=== PATIENT | female | born 1975 | race Caucasian/White ===

== ENCOUNTER 2016-05-21 21:23 | Emergency (ER) | payer OTHER ==
[~2016-05-21 21:23] MED LIST: ACET500CAP PO; ALEVE220 MG PO; AMOXIL500 MG PO; ASAB PO; BENTYL20 PO; CEFT2 PO; IRON OTC PO; KLOR-CON M1010 MEQ PO; L40 PO; LEXAPRO10 PO; MEDROLPAK4 PO; NEUR300 PO; NEUR600 PO; NORCO1 TAB PO; PERCOCET1 TA2 PO; REQUIP3 PO; T PO; TYLENOL ARTH650 MG PO; ULTRAM50 PO; ZEBETA5 PO
[2016-07-22] MEDS ORDERED: MIRAPEX1.5 MG PO (12:58)
[2016-07-22] MEDS ORDERED: LOFIB160 PO (13:00)
[2016-07-22] MEDS ORDERED: CYANO1000T PO (13:02)
== END 2016-05-22 00:31 | disposition left against medical advice (07) ==
LOC: ER 21:23
DX: M25.571 Pain in right ankle and joints of right foot (principal); Z53.21 Procedure and treatment not carried out due to patient leaving prior to being seen by health care provider
CPT/HCPCS: 73610-RT; 73630-RT

== ENCOUNTER 2016-05-22 22:00 | Emergency (ER) | payer OTHER ==
[2016-07-22] MEDS ORDERED: MIRAPEX1.5 MG PO (12:58)
[2016-07-22] MEDS ORDERED: LOFIB160 PO (13:00)
[2016-07-22] MEDS ORDERED: CYANO1000T PO (13:02)
== END 2016-05-23 02:17 | disposition home or self-care (01) ==
LOC: ER 22:00
DX: S93.601A Unspecified sprain of right foot, initial encounter (principal); S33.5XXA Sprain of ligaments of lumbar spine, initial encounter; F32.9 Major depressive disorder, single episode, unspecified; F41.9 Anxiety disorder, unspecified; K58.9 Irritable bowel syndrome, unspecified; D64.9 Anemia, unspecified; W19.XXXA Unspecified fall, initial encounter
CPT/HCPCS: 72100; 81001; 99284; A9270-GY

== ENCOUNTER 2016-05-24 22:00 | Observation (INO) | payer OTHER ==
--- NOTE | ~2016-05-24 | CN ---
Consultation Report [facility] [address] [place]. [address] NAME: BRIGITTE CALLEJAS : 73 STATUS : ADM Cole PAT#: [id number] AGE: 40 ADM/REG DATE : 05/24/16 MR#: [id number] REPORT SERV DATE: 05/26/16 DICTATED BY: MELANIE MCLAUGHLIN DATE: 05/26/16 REPORT STATUS : Draft TRANSCRIBED BY: MODDeep DATE: 05/26/16 NEUROLOGY CONSULTATION DATE OF CONSULTATION: 05/26/2016 HOSPITALIST: Oleg Womack MD REASON FOR CONSULTATION: "Shaking episode." HISTORY OF PRESENT ILLNESS: The patient is a 40-year-old female who had a "shaking spell" on Wednesday. This happened between 6 p.m. and 7 p.m. She was lying down napping with her when he noticed that she had received a phone call. She was shaking in the bed. He described this movement as a type of tremor almost like she had a fever or chills. She was talking on the phone, but seemed to be "out of it." She did exhibit slurred speech. This shaking and jerking lasted for 30 to 45 minutes and then resolved. He tried to stand her up during the episode, but she was unable to stand. After the episode was over, she was alert, she was oriented, and seemed to be herself. The patient did not recall any of this. She states she has never had an episode like this before. PAST MEDICAL HISTORY: Fibromyalgia, irritable bowel syndrome, GERD, tachy-dang syndrome, status post pacemaker placement, chronic pain, chronic anemia, restless legs syndrome, history of right hemiparesis, headache, degenerative joint disease, and osteoarthritis. PAST SURGICAL HISTORY: Status post pacemaker placement, cholecystectomy, and D and C. HOME MEDICATIONS: Tylenol p.r.n., aspirin 81 mg q.a.m., Zebeta 5 mg at bedtime, Lexapro 10 mg at bedtime, Lasix 40 mg Wednesday, Wednesday, and Wednesday, Neurontin 100 mg with meals and 300 mg at bedtime, [place]ont 10/325 mg every 6 hours p.r.n. pain, Aleve 220 mg every 12 hours p.r.n., Requip 3 mg at bedtime, Ultram 50 mg t.i.d. p.r.n. ALLERGIES: NONE. SOCIAL HISTORY: The patient is . She has two children. She is disabled. She does not smoke, drink alcohol, or use illicits. FAMILY HISTORY: The patient's mother is 60. She is alive. Suffers from anemia. Her father is in his 60s. He is alive. He has had a stroke. She has one brother who has thyroid cancer. REVIEW OF SYSTEMS: For pertinent positives, see HPI. PHYSICAL EXAMINATION: VITAL SIGNS: The patient is a 40-year-old female, who stands 5 feet 6 inches tall and Consultation Report [address] [address] NAME: BRIGITTE CALLEJAS : 73 STATUS : ADM Cole PAT#: [id number] AGE: 40 ADM/REG DATE : 05/24/16 MR#: [id number] REPORT SERV DATE: 05/26/16 DICTATED BY: MELANIE MCLAUGHLIN DATE: 05/26/16 REPORT STATUS : Draft TRANSCRIBED BY: SNOW DATE: 05/26/16 weighs 187 pounds. She is afebrile. Heart rate 60, respiratory rate 16, O2 saturations on room air 97%, and blood pressure 111/62. NEUROLOGIC: She is alert, oriented x4. Communicates appropriately. Pupils are 4 mm. PERRLA. Cranial nerves II through XII are intact. Moves all extremities x4. There was no sensory or strength deficits. DTRs are 2+ bilaterally. EXTREMITIES: Lower extremities, no sensory or strength deficits. DTRs 2+ bilaterally. Downgoing toes. NECK: No carotid bruits, JVD or thyromegaly. CHEST: Lung sounds are clear. CARDIAC: Regular rate and rhythm. LABORATORY DATA: CBC is normal. BMP relatively normal. Potassium 3.5. Ammonia is 39. Folate 8.5. B12 361. Urinalysis shows some hematuria. No UTI. IMAGING: MRI of the brain, no acute changes. MRA of the head and neck is normal. ASSESSMENT/PLAN: "Shaking spell." Etiology unknown. The MRI/MRA was negative for structural abnormalities. The patient will undergo an EEG to rule out seizure activity. However, the patient's history is not convincing for true seizure. Lab work will be checked and the patient's medications that could possibly cause tremor or seizure have been discontinued. Thank you again for including us in consultation. We will continue to follow with you. NICHOL/SNOW Melanie Mclaughlin, [facility] / [id number] CC: MD Anny Aguirre M.D. Iwayemi O. Olayeye, MD
--- NOTE | ~2016-05-24 | HP ---
History And Physical [place] [address] [facility] [place]. [address] NAME: BRIGITTE CALLEJAS : 73 STATUS : ADM Cole PAT#: [id number] AGE: 40 ADM/REG DATE : 05/24/16 MR#: [id number] REPORT SERV DATE: 05/25/16 DICTATED BY: DHRUV MARTINEZ DATE: 05/25/16 REPORT STATUS : Draft TRANSCRIBED BY: SNOW DATE: 05/25/16 DATE OF ADMISSION: 05/24/2016 CHIEF COMPLAINT: Shaking spell at home. HISTORY OF PRESENT ILLNESS: This is a 40-year-old female with a history of fibromyalgia, irritable bowel syndrome, gastroesophageal reflux disease, and pacemaker placement for tachy-dang syndrome, who presents to the emergency room at [facility] with the above-mentioned complaint. History is obtained from the patient, her who is at bedside, and reviewing data available on the [employer] system as well. According to available data, Mrs. Callejas with her returned home after busy day outside and around 5 p.m., she lay down on bed to get some rest. Apparently, soon after, her had come and found her shaking all over. He states that she had a phone call that she received just prior to that, spoke to somebody and put the phone down and then the shaking started. She was actually able to respond appropriately and talk on the phone. He states she was shaking all over, just like she had convulsions. It happened in little jerky movements and has continued. He asked her to roll over, so she could breathe properly. She actually rolled over for him and was laying on side, continuing to have these shakes. Subsequently, the patient was brought to the emergency room via EMS. In the emergency room, she was not shaking anymore. She states she was feeling tired and weak. She was able to speak and follow commands. Initial workup in the emergency room revealed elevated liver enzymes and bilirubin, no other abnormality. CT scan of the abdomen and pelvis and CT of the brain was negative. A 12-lead EKG done in the emergency room was also negative. Hospitalist Service is asked to admit her for further evaluation and treatment. At the time of my evaluation, she denied any chest pain, palpitations, or orthopnea. She had no recent cough, hemoptysis, night sweats, or weight loss. She has not had any recent falls or loss of consciousness. As mentioned above, she had episode of shaking without any postictal state. In fact, soon after that, she was able to be helped and with assistance, she was able to go to the bathroom. She had no nausea, vomiting, diarrhea, hematemesis, hematochezia, or hematuria. No other history of recent travel or exposures, other than those mentioned above. PAST MEDICAL HISTORY: Significant for history of fibromyalgia, gastroesophageal reflux disease, irritable bowel syndrome, chronic pain, pacemaker placed for tachycardia- bradycardia syndrome, history of chronic anemia, restless legs syndrome, and prior history of right hemithoraces. SOCIAL HISTORY: She does not smoke, drink, or use recreational drugs. She used to work at [employer], but is currently disabled. FAMILY HISTORY: Noncontributory. History And Physical [address] [address] NAME: BRIGITTE CALLEJAS : 73 STATUS : ADM Cole PAT#: [id number] AGE: 40 ADM/REG DATE : 05/24/16 MR#: [id number] REPORT SERV DATE: 05/25/16 DICTATED BY: DHRUV MARTINEZ DATE: 05/25/16 REPORT STATUS : Draft TRANSCRIBED BY: SNOW DATE: 05/25/16 MEDICATIONS AT HOME: Reviewed by me in the chart today and reordered by me. REVIEW OF SYSTEMS: As in history of present illness. All other systems were reviewed in detail and are quite unremarkable. PHYSICAL EXAMINATION: GENERAL: This is a pleasant 40-year-old, not in any acute distress. HEENT: Her head is atraumatic, normocephalic. She is alert, awake, oriented to time, place, and person. Pupils are equal, reacting to light and accommodating. External ocular muscles are intact. Membranes are moist and pink. Sclerae are nonicteric. NECK: Supple with no jugular venous distention, lymphadenopathy, or thyromegaly. LUNGS: Clear to auscultation with no wheezes, rubs, or crackles. HEART: Sounds were regular with no murmurs, rubs, or gallops. ABDOMEN: Soft, nontender. Bowel sounds are present. EXTREMITIES: Showed no cyanosis, clubbing, or edema. NEUROLOGIC: Grossly intact. No focal sensory or motor deficits. Higher functions appeared intact. Gait was not examined at this time. VITAL SIGNS: Today showed a temperature of 98 degrees Fahrenheit, pulse 73, respirations 24 a minute, blood pressure was 135/46, and oxygen saturations were 99%, breathing 2 L of oxygen via nasal cannula. LABORATORY DATA: Reviewed on the [employer] system showed normal CMP with a blood glucose of 96. Albumin was 4.0, globulin 3.2, total bilirubin was 2.3 today and indirect bilirubin 1, alkaline phosphatase was 212, ALT was 111, AST 108. Serum tox screen was negative. Lactate was 0.7 today. CBC was essentially within normal limits. Her prothrombin time was 13.8 with an INR of 1.1. Urinalysis revealed large blood, nitrite negative. Leukocyte esterase was negative. There were 3 rbc's and 1 wbc. Films of the CT scan of the brain and abdomen and pelvis were reviewed by me on the PACS today and interpreted by me. Official radiology report was also reviewed. There is no acute intracranial abnormality. There were no abnormalities seen in the abdomen or pelvis. Please see reports for details. A 12-lead EKG done in the emergency room was reviewed and interpreted by me. There is normal sinus rhythm with a rate of [address] elevations. IMPRESSION: 1. Shaking spell while at home of unclear etiology. 2. Hepatitis. 3. Rhabdomyolysis. 4. Fibromyalgia. 5. Gastroesophageal reflux disease. 6. Irritable bowel syndrome. 7. Chronic pain. 8. Chronic anemia. 9. History of pacemaker placement. PLAN: We will admit Mrs. Callejas to the Hospitalist Service to med/surg telemetry for a 24- hour observation period. We will start her on neuro checks, bronchodilator treatments, and History And Physical [address] [address] NAME: BRIGITTE CALLEJAS : 73 STATUS : ADM Cole PAT#: [id number] AGE: 40 ADM/REG DATE : 05/24/16 MR#: [id number] REPORT SERV DATE: 05/25/16 DICTATED BY: DHRUV MARTINEZ DATE: 05/25/16 REPORT STATUS : Draft TRANSCRIBED BY: MODL DATE: 03/13/17 continue supplemental oxygen therapy. Check her CPK as well. We will get aguirre cultures, but hold off on antibiotics as there are no indices for sepsis at this time. We will order hepatitis panel and go ahead and consult Gastroenterology Service to see her in the morning. Her shaking is unlikely to be a seizure. There was no postictal state. She was able to walk after the episode. She even followed commands to roll over while she was having the shaking episode. I do not have any evidence of infection at this time nor any other intraabdominal pathology. It could be medication related as she was on multiple medications for pain given by different providers. She was here in the emergency room recently and given pain medications again. Anyway, we will go ahead and order an MRI and MRA of her brain. She states her pacemaker is compatible with MRI and get Neurology to see her in the morning to rule out any neurological issues going on. She will also be getting aggressive fluid replacement for her rhabdomyolysis. We will repeat a UA in the morning. I have discussed the above plans with the patient and the family. Questions were answered and they are agreeable to the above recommendations. Hospitalist Service will be following her during her stay here. MR/MODL Dhruv Martinez M.D. / [id number] CC: MD Anny Worley M.D.
--- NOTE | ~2016-05-24 | EEG ---
Electroencephalogram [place] [address] [place]. [address] NAME: BRIGITTE CALLEJAS : 73 STATUS : ADM Cole PAT#: [id number] AGE: 40 ADM/REG DATE : 05/24/16 MR#: [id number] REPORT SERV DATE: 05/30/16 DICTATED BY: JAN NARAYAN DATE: 05/30/16 REPORT STATUS : Draft TRANSCRIBED BY: MODL DATE: 05/30/16 ELECTROENCEPHALOGRAPHY REPORT. REQUESTING PHYSICIAN: Melanie Walton [facility]. INTERPRETING PHYSICIAN: Jan Narayan MD. EEG NUMBER: [id number]. LOCATION OF THE PATIENT: Room 227. REASON FOR EEG: History of episode of "shaking", rule out seizures, 23 surface electrodes, 10-20 international placement was used. The patient was noted to be awake and drowsy throughout the study. Video EEG recording was utilized. The patient appeared cooperative. 23 surface electrodes, 10-20 international placement was used. The background activity consisted of [id number] voltage, relatively well-organized, 9-10 cycles per second, located in the posterior head regions. This off range activity attenuated with the eye opening maneuvers. Photic stimulation produced normal driving response in the posterior head regions. No significant asymmetry of cerebral activity was present. During drowsiness, no abnormal activity was observed and no paroxysmal activity or epileptiform activity noted. The patient's school lunch monitor showed sinus rhythm, rate of approximately 68 beats per minute. IMPRESSION: THIS IS A NORMAL AWAKE AND DROWSY EEG. CLINICAL CORRELATION IS RECOMMENDED. BETTY/SNOW Jan Narayan MD / [id number] CC: MD Anny Aguirre M.D.
--- NOTE | ~2016-05-24 | DS ---
Discharge Summary [facility] [address] [place]. [address] NAME: BRIGITTE CALLEJAS : 73 STATUS : ADM Cole PAT#: [id number] AGE: 40 ADM/REG DATE : 05/24/16 MR#: [id number] REPORT SERV DATE: 05/30/16 DICTATED BY: CADEN BAILEY DATE: 05/29/16 REPORT STATUS : Draft TRANSCRIBED BY: MODL DATE: 05/29/16 ADMISSION DATE: 05/24/2016 DISCHARGE DATE: This patient is a 40-year-old female, with a history of fibromyalgia, irritable bowel syndrome, and GERD, who presented to the emergency room with a complaint of shaking spells at home. For further details, please refer to H and P dictated by Dr. Dhruv Chamberlain, on 05/24/2016. HOSPITAL COURSE: Upon presentation to the emergency room, the patient was admitted to the Hospitalist Service for further management. At the time of her presentation, preliminary workup noted elevated liver function test. Given her complaint of shaking spells, Neurology was consulted to evaluate the patient. For further details please refer to consultation note dictated by Melanie Walton, on 05/26/2016. Also given her elevated LFT with unclear etiology, GI was consulted. For further details please refer to GI consultation note dictated by RAHUL Watts on 05/25/2016. I assumed care of the patient on 05/26/2016. At time of my assumption of care, the patient was hemodynamically stable, had already been seen by Neurology and GI. Per GI evaluation, it was thought that her symptoms might be medication related. She was on tramadol and ropinirole. Both medications were discontinued, and Neurology ordered an EEG to rule out any seizure activity. The patient has remained stable from a neurologic standpoint without any further episodes of shaking spells. From the GI perspective, the patient had a CT abdomen which was not significant. Doppler ultrasound of the liver and hepatic echo were both performed to evaluate her liver. All studies came back normal. Her liver enzymes were trended daily, and all her liver enzymes have returned to normal except her alkaline phosphatase, which remained moderately elevated. The patient has been followed by GI throughout hospitalization course. From GI standpoint, per their evaluation today there is no need for further evaluation with recommendations for patient to follow up as outpatient setting in 4-6 weeks. Given the resolution of her symptoms and given her hemodynamic stability and given completion of workup, the patient will be discharged home today to follow up with her primary care physician and Gastroenterology as an outpatient. Plan has been discussed with the patient who voices understanding and is agreeable with this plan. Throughout her hospitalization, the patient was provided counseling and detailed explanation of presenting symptoms, and current management plan were explained to the patient on a daily basis. DISCHARGE DIAGNOSES: 1. Convulsions/shaking spells. 2. Transaminitis. 3. Gastroesophageal reflux disease. 4. Chronic pain syndrome. DISCHARGE EXAM: VITAL SIGNS: Blood pressure 118/70 with a pulse of 74, respirations 17, O2 saturation 100% on room air. GENERAL: The patient lying in bed, in no acute distress. Appears stated age. HEENT: Normocephalic, atraumatic. Extraocular motors intact. Oral mucosa moist. Mouth; partial edentulous. Discharge Summary [address] [address] NAME: BRIGITTE CALLEJAS : 73 STATUS : ADM Cole PAT#: [id number] AGE: 40 ADM/REG DATE : 05/24/16 MR#: [id number] REPORT SERV DATE: 05/30/16 DICTATED BY: CADEN BAILEY DATE: 05/29/16 REPORT STATUS : Draft TRANSCRIBED BY: SNOW DATE: 05/29/16 NECK: Trachea is midline and symmetric. No JVD noted. No thyromegaly present. CHEST: Nontender to palpation. No scars noted. CARDIOVASCULAR: Regular rate and rhythm. S1-S2. I do not appreciate any murmurs, rubs, or gallops. LUNGS: Clear to auscultation bilaterally. ABDOMEN: Obese, positive bowel sounds. Nontender. Nondistended. EXTREMITIES: No cyanosis, no clubbing, no edema. NEURO: Alert and oriented x3. No focal deficits noted. DISCHARGE MEDICATIONS: Xanax 0.5 mg p.o. at bedtime, aspirin 81 mg p.o. daily, naproxen 220 mg p.o. q.12 hours for pain, Zebeta 5 mg p.o. at bedtime, Lexapro 10 mg p.o. at bedtime, furosemide 40 mg p.o. Bon, Wednesday, Wednesday, gabapentin 300 mg morning and afternoon, gabapentin 600 mg p.o. at bedtime, and pantoprazole 40 mg p.o. at breakfast, IMAGING: Brain CT without contrast impression: Unremarkable noncontrast head CT. No acute intracranial pathology. CT abdomen and pelvis without contrast, impression: 1. No acute abdominal or pelvic pathology. 2. Status post cholecystectomy. 3. Moderate to severe degenerative disc disease L5-S1. Hepatic portal ultrasound impression: Hepatic and portal system patent with hepatopetal normal anterograde flow. No evidence of portal hypertension seen here. Hepatic echo impression: Status post cholecystectomy, and there is no biliary dilatation. Otherwise negative hepatic ultrasound. MRI MRA head without contrast impression: Normal intracranial MRA. MRI brain without contrast: Normal MRI of the brain. No evidence of recent infarction or chronic ischemic changes. Of note, the patient was counseled given her presenting symptoms. The patient was counseled against tramadol use as the likely etiology of her presentation was medication related. The patient was upset after she was given this certified substance abuse counselor. DISPOSITION: The patient will be discharged to home to follow up with her GI as outpatient and her primary care physician. ACTIVITY: As tolerated. DIET: Regular. Greater than 30 minutes was spent coordinating discharge, dictation of note, medication reconciliation, writing of prescription. Discharge Summary [address] [address] NAME: BRIGITTE CALLEJAS : 73 STATUS : ADM Cole PAT#: [id number] AGE: 40 ADM/REG DATE : 05/24/16 MR#: [id number] REPORT SERV DATE: 05/30/16 DICTATED BY: CADEN BAILEY DATE: 05/29/16 REPORT STATUS : Draft TRANSCRIBED BY: SNOW DATE: 05/29/16 TYSON/SNOW Caden Bailey MD / [id number] CC: MD Anny Aguirre M.D.
--- NOTE | ~2016-05-24 | DS ---
Discharge Summary [place] [address] [facility] [place]. [address] NAME: BRIGITTE CALLEJAS : 73 STATUS : DIS Cole PAT#: [id number] AGE: 40 ADM/REG DATE : 05/24/16 MR#: [id number] REPORT SERV DATE: 05/30/16 DICTATED BY: CADEN BAILEY DATE: 05/30/16 REPORT STATUS : Draft TRANSCRIBED BY: SNOW DATE: 05/30/16 ADMISSION DATE: 05/24/2016 DISCHARGE DATE: 05/30/2016 ADDENDUM: To discharge summary dictated by me on 05/29/2016, work #[id number]. The patient was discharged yesterday; however, refused to leave the hospital requesting to see a neurologist. The patient has been seen by neurologist and will subsequently be discharged today. Every other information on discharge summary remains the same. ELKE Caden Bailey MD / [id number] CC: MD Anny Aguirre M.D.
--- NOTE | ~2016-05-24 | CN ---
Consultation Report [facility] [address] [place]. [address] NAME: BRIGITTE CALLEJAS : 73 STATUS : ADM Cole PAT#: [id number] AGE: 40 ADM/REG DATE : 05/24/16 MR#: [id number] REPORT SERV DATE: 05/25/16 DICTATED BY: KIRSTEN SANTOS DATE: 05/25/16 REPORT STATUS : Draft TRANSCRIBED BY: MODDeep DATE: 05/25/16 GI CONSULTATION DATE OF CONSULTATION: 05/25/2016 REASON FOR CONSULTATION: Evaluation and management of elevated LFTs. HISTORY OF PRESENT ILLNESS: Ms. Callejas is a pleasant, 40-year-old, female patient who came into [facility] on the with a chief complaint of what her states was convulsions or "shaking spell at home." The patient and the state that they had been working outside of the home yesterday. She states that she felt unusually tired. However, she was able to get up and go with him. She came in around 1700 hours and went to her bedroom to lie down on the bed. states that he came in and found her shaking all over. He felt like she was having convulsions, thus called 911. The patient does not remember any of these events going on. She only remembers waking up inside the ambulance. She was admitted to [facility]. She had a CT of the abdomen and pelvis without contrast showing a normal exam. She had mildly elevated liver enzymes. On admission, total bilirubin is 2.3, alkaline phosphatase 212, ALT 111, AST 108. By review of previous laboratory data in 2016, she also had slight elevation in her LFTs with her ALT being 70, AST being 95, total bilirubin of 1.5. She denies any new medications being started recently. She denies any herbal medications or [id number] medications that she has been taking new or different. She denies any abdominal pain. On abdominal assessment, she has some mild right-sided tenderness which she states is sore. She denies any recent nausea or vomiting. She states that she has chronic pain secondary to fibromyalgia as well as a pulled muscle in her back. CT of the brain was negative. She has been ordered an MRI of the brain. I have discussed with the patient we will order chronic liver laboratories to be done as well as an ultrasound of the liver with Doppler of the vessels. PAST MEDICAL HISTORY: Positive for fibromyalgia, GERD, irritable bowel syndrome, chronic pain on chronic pain medications, pacemaker placed for tachy-dang syndrome, chronic anemia, restless legs syndrome. SURGICAL HISTORY: Cholecystectomy. SOCIAL HISTORY: No alcohol, tobacco, or illicit's. She is currently disabled and . FAMILY HISTORY: Negative from a GI standpoint. ALLERGIES: TO NOTHING. HOME MEDICATIONS: Tylenol, aspirin, Zebeta, Lexapro, Lasix, Neurontin, Gay, Aleve, Requip, and Ultram. REVIEW OF SYSTEMS: Consultation Report [facility] [id number] [place]. [address] NAME: BRIGITTE CALLEJAS : 73 STATUS : ADM Cole PAT#: [id number] AGE: 40 ADM/REG DATE : 05/24/16 MR#: [id number] REPORT SERV DATE: 05/25/16 DICTATED BY: KIRSTEN SANTOS DATE: 05/25/16 REPORT STATUS : Draft TRANSCRIBED BY: SNOW DATE: 05/25/16 A 10-point review of systems has been obtained with pertinent positives being addressed in the history of present illness. PHYSICAL EXAMINATION: VITAL SIGNS: Temperature is 97.3, pulse of 68, respirations 16, blood pressure 124/71. NEURO: Reveals an alert, female, resting in bed with no obvious focal deficits. GENERAL: She is cooperative. She is in no apparent distress. She is awake. She is alert. She is oriented x3. Obese body habitus. No asterixis noted. HEAD, EARS, EYES, NOSE, AND THROAT: Anicteric. Pupils equal, round, reactive to light and accommodation. Normocephalic and atraumatic. NECK: No JVD. No palpable nodes. Supple. LUNGS: Clear anteriorly with normal respiratory effort exhibited. Equal expansion. Diminished bilaterally in the bases. No wheezes or rhonchi auscultated. CARDIOVASCULAR SYSTEM: Regular rate and rhythm. ABDOMEN: Soft with mild tenderness to palpation to the right side. No rebound or guarding elicited on exam. No palpable liver or spleen felt. EXTREMITIES: No edema. Normal distal pulses. SKIN: Warm, dry, and intact. PERTINENT LABORATORY DATA: Sodium is 140, potassium is 3.5, BUN is 9, creatinine is 0.69. White count 6.2, hemoglobin 13, hematocrit 38.7, platelet count is 255. INR of 1.1. CPK is 119, total bilirubin 2.3, alkaline phosphatase 212, ALT 111, AST 108. Lipase is not checked. Hepatitis panel pending. ASSESSMENT: 1. Mildly elevated LFTs which really isn't a new finding. She had elevation in her LFTs in 2016. 2. "Convulsions" per with a shaking spell which brought her into the hospital. 3. Chronic pain syndrome/fibromyalgia. PLAN: 1. Check ultrasound of the liver with Doppler. 2. Check chronic liver labs. 3. Follow up on hepatitis panel. 4. Other recommendations to follow laboratory data. BELKYS/SNOW RAHUL Watts / [id number] Consultation Report [address] [address] NAME: BRIGITTE CALLEJAS : 73 STATUS : ADM Cole PAT#: [id number] AGE: 40 ADM/REG DATE : 05/24/16 MR#: [id number] REPORT SERV DATE: 05/25/16 DICTATED BY: KIRSTEN SANTOS DATE: 05/25/16 REPORT STATUS : Draft TRANSCRIBED BY: SNOW DATE: 05/25/16 CC: MD Anny Worley M.D.
[2016-05-24 22:56] LABS: BASOPHILS 0.3 %; BASOPHILS ABSOLUTE 0.02 10/3/uL (0.0-0.16); EOSINOPHILS 3.3 %; HEMATOCRIT 38.7 % (36.0-48.0); IMMATURE GRANULOCYTES 0.2 %; IMMATURE GRANULOCYTES ABSOLUTE 0.01 10/3/uL (0.0-0.11); LYMPHOCYTES 22.9 %; LYMPHOCYTES ABSOLUTE 1.41 10/3/uL (0.67-4.30); MEAN CORPUS HGB CONC 33.6 g/dL (32.0-36.0); MEAN CORPUSCULAR HEMOGLOB 31.2 pg (26.0-34.0); MEAN CORPUSCULAR VOLUME 92.8 fL (80-100); MEAN PLATELET VOLUME 9.9 fL (9.2-13.0); MONOCYTES 5.9 %; MONOCYTES ABSOLUTE 0.36 10/3/uL (0.21-1.20); NEUTROPHILS 67.4 %; NEUTROPHILS ABSOLUTE 4.15 10/3/uL (2.02-8.40); PLATELET COUNT 255 10/3/uL (150-400); RBC DISTRIBUTION WIDTH 12.8 % (12.0-16.0); RED CELL COUNT 4.17 10/6/uL (4.0-5.6); WHITE BLOOD CELLS 6.2 10/3/uL (4.5-10.5)
[2016-05-24 22:57] LABS: MANUAL DIFF NO %
[2016-05-24 23:01] LABS: ASCORBIC ACID (UR NOT ORDER) NEG (NEG); BILIRUBIN, URINE NEGATIVE (NEG); ER URINALYSIS TAT 0 Hrs 11 Mins; KETONE, URINE NEGATIVE (NEG); LEUKOCYTE ESTERASE(NOT OR NEG (NEG); NITRITE (URINE) NEG (NEG); WBC (NOT ORDERED) (RFLEX) 1 (0-5)
[2016-05-24 23:04] LABS: INTERNATIONAL NORMAL RATI 1.1 UNITS (-); PARTIAL THROMBO TIME 32.1 SEC (22.5-37.2); PROTIME (NOT ORD) 13.8 SEC (12.0-14.5)
[2016-05-24 23:10] LABS: A/G RATIO 1.3 (0.7-1.9); BUN (BLOOD UREA NITROGEN) 9 MG/DL (6-23); CALCIUM, SERUM 8.6 MG/DL (8.5-10.4); CHLORIDE, SERUM 103 MMOL/L (96-112); CO2 (CARBON DIOXIDE) 29 MMOL/L (24-34); CREATININE 0.69 MG/DL (0.55-1.02); GFR AFRICAN AMERICAN 125 ML/MIN (>=60); GFR NON AFRICAN AMERICAN 108 ML/MIN (>=60); GLOBULIN 3.2 G/DL (2.5-4.1); POTASSIUM, SERUM 3.5 MMOL/L (3.5-5.3); SGOT(AST) 108 U/L (5-40); SGPT(ALT) 111 U/L (5-65); SODIUM, SERUM 140 MMOL/L (135-148); TOTAL PROTEIN 7.2 G/DL (6.0-8.5)
[2016-05-24 23:14] LABS: ACETAMINOPHEN LEVEL (TYLENOL) < 2.0 MCG/ML (10.0-20.0); ALCOHOL < 10 MG/DL (0); ALKALINE PHOSPHATASE 212 U/L (45-117); GLUCOSE, SERUM 96 MG/DL (60-99); TOTAL BILIRUBIN 2.3 MG/DL (0-1.2)
[2016-05-24 23:15] LABS: SALICYLATE < 1.7 MG/DL (-)
[2016-05-24 23:29] LABS: AMPHETAMINES (NOT ORD) NEG (NEG); BARBITURATES (NOT ORDERED NEG (NEG); BENZODIAZEPINES (NOT ORD) NEG (NEG); CANNABINOIDS (THC) NEG (NEG); COCAINE (NOT ORDERED) NEG (NEG); OPIATES NEG (NEG); PHENCYCLIDINE(PCP) NEG (NEG); TRICYCLICS NEG (NEG)
[2016-05-25 02:28] LABS: CPK 119 U/L (0-200)
[2016-05-25 08:31] LABS: HEPATITIS B SURFACE ANTIGEN NON-REACTIVE (NON-REACT)
[2016-05-25 08:42] LABS: BASOPHILS 0.2 %; BASOPHILS ABSOLUTE 0.01 10/3/uL (0.0-0.16); EOSINOPHILS 3.4 %; EOSINOPHILS ABSOLUTE 0.18 10/3/uL (0.0-0.53); HEMOGLOBIN 11.6 g/dL (12.0-16.0); IMMATURE GRANULOCYTES 0.2 %; IMMATURE GRANULOCYTES ABSOLUTE 0.01 10/3/uL (0.0-0.11); LYMPHOCYTES 26.9 %; LYMPHOCYTES ABSOLUTE 1.44 10/3/uL (0.67-4.30); MEAN CORPUS HGB CONC 33.5 g/dL (32.0-36.0); MEAN CORPUSCULAR HEMOGLOB 31.3 pg (26.0-34.0); MEAN CORPUSCULAR VOLUME 93.3 fL (80-100); MEAN PLATELET VOLUME 10.1 fL (9.2-13.0); MONOCYTES 6.5 %; MONOCYTES ABSOLUTE 0.35 10/3/uL (0.21-1.20); NEUTROPHILS 62.8 %; NEUTROPHILS ABSOLUTE 3.37 10/3/uL (2.02-8.40); PLATELET COUNT 235 10/3/uL (150-400); RBC DISTRIBUTION WIDTH 12.8 % (12.0-16.0); RED CELL COUNT 3.71 10/6/uL (4.0-5.6); WHITE BLOOD CELLS 5.4 10/3/uL (4.5-10.5)
[2016-05-25 08:45] LABS: HEMATOCRIT 34.6 % (36.0-48.0); MANUAL DIFF NO %
[2016-05-25 08:54] LABS: BUN (BLOOD UREA NITROGEN) 8 MG/DL (6-23); CALCIUM, SERUM 8.3 MG/DL (8.5-10.4); CHLORIDE, SERUM 110 MMOL/L (96-112); CO2 (CARBON DIOXIDE) 23 MMOL/L (24-34); CREATININE 0.59 MG/DL (0.55-1.02); GFR AFRICAN AMERICAN 132 ML/MIN (>=60); GFR NON AFRICAN AMERICAN 114 ML/MIN (>=60); GLUCOSE, SERUM 118 MG/DL (60-99); PHOSPHORUS, SERUM 2.5 MG/DL (2.5-4.5); POTASSIUM, SERUM 3.5 MMOL/L (3.5-5.3); SODIUM, SERUM 142 MMOL/L (135-148)
[2016-05-25 08:58] LABS: HEPATITIS C ANTIBODY NON-REACTIVE (NON-REACT)
[2016-05-25 08:59] LABS: HEPATITIS B CORE AB IGM NON-REACTIVE (NON-REAC)
[2016-05-25 09:00] LABS: HEP A ANTIBODY IGM NON-REACTIVE (NON-REACT)
[2016-05-25 11:07] LABS: FOLATE 8.5 NG/ML (>5.2)
[2016-05-26 05:49] LABS: BASOPHILS 0.3 %; BASOPHILS ABSOLUTE 0.02 10/3/uL (0.0-0.16); EOSINOPHILS 3.9 %; EOSINOPHILS ABSOLUTE 0.23 10/3/uL (0.0-0.53); HEMATOCRIT 34.9 % (36.0-48.0); HEMOGLOBIN 11.6 g/dL (12.0-16.0); IMMATURE GRANULOCYTES 0.2 %; IMMATURE GRANULOCYTES ABSOLUTE 0.01 10/3/uL (0.0-0.11); LYMPHOCYTES ABSOLUTE 1.94 10/3/uL (0.67-4.30); MANUAL DIFF NO %; MEAN CORPUS HGB CONC 33.2 g/dL (32.0-36.0); MEAN CORPUSCULAR VOLUME 93.3 fL (80-100); MONOCYTES 6.1 %; MONOCYTES ABSOLUTE 0.36 10/3/uL (0.21-1.20); NEUTROPHILS 56.5 %; NEUTROPHILS ABSOLUTE 3.31 10/3/uL (2.02-8.40); PLATELET COUNT 239 10/3/uL (150-400); RBC DISTRIBUTION WIDTH 12.8 % (12.0-16.0); RED CELL COUNT 3.74 10/6/uL (4.0-5.6); WHITE BLOOD CELLS 5.9 10/3/uL (4.5-10.5)
[2016-05-26 05:52] LABS: PROTIME (NOT ORD) 13.3 SEC (12.0-14.5)
[2016-05-26 06:01] LABS: ALBUMIN 3.2 G/DL (3.5-5.0); BUN (BLOOD UREA NITROGEN) 6 MG/DL (6-23); CALCIUM, SERUM 8.7 MG/DL (8.5-10.4); CHLORIDE, SERUM 106 MMOL/L (96-112); CO2 (CARBON DIOXIDE) 25 MMOL/L (24-34); CREATININE 0.55 MG/DL (0.55-1.02); DIRECT BILIRUBIN 0.2 MG/DL (0.0-0.4); GFR AFRICAN AMERICAN 135 ML/MIN (>=60); GFR NON AFRICAN AMERICAN 117 ML/MIN (>=60); GLUCOSE, SERUM 104 MG/DL (60-99); PHOSPHORUS, SERUM 2.9 MG/DL (2.5-4.5); POTASSIUM, SERUM 3.5 MMOL/L (3.5-5.3); SGOT(AST) 41 U/L (5-40); SGPT(ALT) 67 U/L (5-65); SODIUM, SERUM 142 MMOL/L (135-148); TOTAL PROTEIN 6.4 G/DL (6.0-8.5)
[2016-05-26 06:02] LABS: TOTAL BILIRUBIN 1.2 MG/DL (0-1.2)
[2016-05-26 06:03] LABS: ALKALINE PHOSPHATASE 173 U/L (45-117)
[2016-05-27 05:51] LABS: BASOPHILS 0.3 %; BASOPHILS ABSOLUTE 0.02 10/3/uL (0.0-0.16); EOSINOPHILS 3.5 %; EOSINOPHILS ABSOLUTE 0.22 10/3/uL (0.0-0.53); HEMATOCRIT 35.3 % (36.0-48.0); HEMOGLOBIN 11.9 g/dL (12.0-16.0); IMMATURE GRANULOCYTES 0.3 %; IMMATURE GRANULOCYTES ABSOLUTE 0.02 10/3/uL (0.0-0.11); LYMPHOCYTES 34.6 %; LYMPHOCYTES ABSOLUTE 2.17 10/3/uL (0.67-4.30); MEAN CORPUS HGB CONC 33.7 g/dL (32.0-36.0); MEAN CORPUSCULAR HEMOGLOB 31.6 pg (26.0-34.0); MEAN CORPUSCULAR VOLUME 93.9 fL (80-100); MEAN PLATELET VOLUME 10.3 fL (9.2-13.0); MONOCYTES 6.4 %; NEUTROPHILS 54.9 %; NEUTROPHILS ABSOLUTE 3.44 10/3/uL (2.02-8.40); PLATELET COUNT 257 10/3/uL (150-400); RBC DISTRIBUTION WIDTH 12.7 % (12.0-16.0); RED CELL COUNT 3.76 10/6/uL (4.0-5.6); WHITE BLOOD CELLS 6.3 10/3/uL (4.5-10.5)
[2016-05-27 05:53] LABS: MANUAL DIFF NO %
[2016-05-27 06:09] LABS: ALBUMIN 3.4 G/DL (3.5-5.0); ALKALINE PHOSPHATASE 165 U/L (45-117); BUN (BLOOD UREA NITROGEN) 6 MG/DL (6-23); CALCIUM, SERUM 8.8 MG/DL (8.5-10.4); CHLORIDE, SERUM 104 MMOL/L (96-112); CO2 (CARBON DIOXIDE) 27 MMOL/L (24-34); DIRECT BILIRUBIN 0.1 MG/DL (0.0-0.4); GFR AFRICAN AMERICAN 106 ML/MIN (>=60); GFR NON AFRICAN AMERICAN 92 ML/MIN (>=60); GLOBULIN 3.3 G/DL (2.5-4.1); GLUCOSE, SERUM 97 MG/DL (60-99); INDIRECT BILIRUBIN(NOT ORDER) 0.7 MG/DL (0.1-0.9); POTASSIUM, SERUM 3.4 MMOL/L (3.5-5.3); SGOT(AST) 32 U/L (5-40); SGPT(ALT) 59 U/L (5-65); SODIUM, SERUM 140 MMOL/L (135-148); TOTAL BILIRUBIN 0.8 MG/DL (0-1.2); TOTAL PROTEIN 6.7 G/DL (6.0-8.5)
[2016-05-27 11:02] LABS: ANA PATTERN HOMOGENEOUS; ANA TITER 1:40 TITER
[2016-05-27 18:05] LABS: TISSUE TRANSGLUTAMINASE AB IGG <0.8 U/mL (<15.0)
[2016-05-27 19:44] LABS: ALPHA-1-ANTITRYPSIN 130 mg/dL (100-200); CERULOPLASMIN 28 mg/dL (7-220)
[2016-05-28 07:53] LABS: BASOPHILS 0.4 %; BASOPHILS ABSOLUTE 0.03 10/3/uL (0.0-0.16); EOSINOPHILS 3.3 %; EOSINOPHILS ABSOLUTE 0.24 10/3/uL (0.0-0.53); HEMATOCRIT 37.3 % (36.0-48.0); HEMOGLOBIN 12.4 g/dL (12.0-16.0); IMMATURE GRANULOCYTES 0.4 %; IMMATURE GRANULOCYTES ABSOLUTE 0.03 10/3/uL (0.0-0.11); LYMPHOCYTES 34.9 %; LYMPHOCYTES ABSOLUTE 2.53 10/3/uL (0.67-4.30); MEAN CORPUS HGB CONC 33.2 g/dL (32.0-36.0); MEAN CORPUSCULAR HEMOGLOB 30.9 pg (26.0-34.0); MEAN PLATELET VOLUME 10.3 fL (9.2-13.0); MONOCYTES 5.8 %; MONOCYTES ABSOLUTE 0.42 10/3/uL (0.21-1.20); NEUTROPHILS 55.2 %; PLATELET COUNT 270 10/3/uL (150-400); RBC DISTRIBUTION WIDTH 12.9 % (12.0-16.0); RED CELL COUNT 4.01 10/6/uL (4.0-5.6); WHITE BLOOD CELLS 7.3 10/3/uL (4.5-10.5)
[2016-05-28 07:55] LABS: MANUAL DIFF NO %
[2016-05-28 08:11] LABS: ALBUMIN 3.5 G/DL (3.5-5.0); ALKALINE PHOSPHATASE 158 U/L (45-117); BUN (BLOOD UREA NITROGEN) 10 MG/DL (6-23); CHLORIDE, SERUM 103 MMOL/L (96-112); CO2 (CARBON DIOXIDE) 29 MMOL/L (24-34); CREATININE 0.72 MG/DL (0.55-1.02); GFR AFRICAN AMERICAN 121 ML/MIN (>=60); GFR NON AFRICAN AMERICAN 104 ML/MIN (>=60); GLOBULIN 3.4 G/DL (2.5-4.1); GLUCOSE, SERUM 89 MG/DL (60-99); POTASSIUM, SERUM 3.5 MMOL/L (3.5-5.3); SGOT(AST) 37 U/L (5-40); SGPT(ALT) 53 U/L (5-65); SODIUM, SERUM 141 MMOL/L (135-148); TOTAL BILIRUBIN 0.9 MG/DL (0-1.2); TOTAL PROTEIN 6.9 G/DL (6.0-8.5)
[2016-05-28 11:15] LABS: A/G 1.55 RATIO (0.9-2.10); ALB RELATIVE % 60.8 % (60.0-89.0); ALBUMIN (ELECTRO) 4.26 GM/DL (3.2-5.5); ALPHA 1 (ELECTRO) 0.22 GM/DL (0.1-0.4); ALPHA 1 RELAT % (NOT ORD) 3.2 % (1.0-4.0); ALPHA 2 (ELECTRO) 0.78 GM/DL (0.5-1.10); ALPHA 2 RELAT % 11.1 % (4.5-26.0); BETA GLOBULIN (SPE) 0.75 GM/DL (0.60-1.30); BETA RELATIVE % 10.7 % (9.0-22.0); GAMMA GLOBULIN (SPE) 0.99 G/DL (0.70-1.60); GAMMA RELAT % 14.2 % (6.0-22.0)
[2016-05-28 14:32] LABS: MITOCHONDRIAL ANTIBODY Negative (NEG); SMOOTH MUSCLE ANTIBODIES Negative (NEG)
[2016-05-29 05:24] LABS: BASOPHILS 0.4 %; BASOPHILS ABSOLUTE 0.03 10/3/uL (0.0-0.16); EOSINOPHILS 2.8 %; EOSINOPHILS ABSOLUTE 0.24 10/3/uL (0.0-0.53); HEMATOCRIT 36.3 % (36.0-48.0); HEMOGLOBIN 12.3 g/dL (12.0-16.0); IMMATURE GRANULOCYTES 0.4 %; IMMATURE GRANULOCYTES ABSOLUTE 0.03 10/3/uL (0.0-0.11); LYMPHOCYTES 33.8 %; LYMPHOCYTES ABSOLUTE 2.88 10/3/uL (0.67-4.30); MEAN CORPUS HGB CONC 33.9 g/dL (32.0-36.0); MEAN CORPUSCULAR HEMOGLOB 31.9 pg (26.0-34.0); MEAN PLATELET VOLUME 10.3 fL (9.2-13.0); MONOCYTES ABSOLUTE 0.51 10/3/uL (0.21-1.20); NEUTROPHILS 56.6 %; NEUTROPHILS ABSOLUTE 4.83 10/3/uL (2.02-8.40); PLATELET COUNT 277 10/3/uL (150-400); RBC DISTRIBUTION WIDTH 12.7 % (12.0-16.0); RED CELL COUNT 3.86 10/6/uL (4.0-5.6); WHITE BLOOD CELLS 8.5 10/3/uL (4.5-10.5)
[2016-05-29 05:30] LABS: MANUAL DIFF NO %
[2016-05-29 05:38] LABS: A/G RATIO 1.1 (0.7-1.9); ALBUMIN 3.6 G/DL (3.5-5.0); ALKALINE PHOSPHATASE 152 U/L (45-117); BUN (BLOOD UREA NITROGEN) 10 MG/DL (6-23); CALCIUM, SERUM 8.9 MG/DL (8.5-10.4); CHLORIDE, SERUM 100 MMOL/L (96-112); CO2 (CARBON DIOXIDE) 30 MMOL/L (24-34); CREATININE 0.71 MG/DL (0.55-1.02); GFR AFRICAN AMERICAN 123 ML/MIN (>=60); GFR NON AFRICAN AMERICAN 106 ML/MIN (>=60); GLOBULIN 3.4 G/DL (2.5-4.1); GLUCOSE, SERUM 104 MG/DL (60-99); POTASSIUM, SERUM 4.1 MMOL/L (3.5-5.3); SGOT(AST) 31 U/L (5-40); SGPT(ALT) 50 U/L (5-65); SODIUM, SERUM 140 MMOL/L (135-148); TOTAL BILIRUBIN 0.7 MG/DL (0-1.2)
[2016-05-29] MEDS ORDERED: PROTONIX PO (18:12)
[2016-05-29] MEDS ORDERED: X5 PO (18:15)
[2016-05-30] MEDS ORDERED: REQUIP3 PO (16:31)
[2016-07-22] MEDS ORDERED: MIRAPEX1.5 MG PO (12:58)
[2016-07-22] MEDS ORDERED: LOFIB160 PO (13:00)
[2016-07-22] MEDS ORDERED: CYANO1000T PO (13:02)
== END 2016-05-30 18:04 | disposition home or self-care (01) ==
LOC: ER 22:00 → 2SO 23:59
PROVIDERS: Hospitalist; Internal Medicine Gastroenterology; Internal Medicine Pulmonary Disease; Nurse Practitioner Acute Care; Nurse Practitioner Family
DX: R56.9 Unspecified convulsions (principal); K21.9 Gastro-esophageal reflux disease without esophagitis; G89.4 Chronic pain syndrome; M79.7 Fibromyalgia; K58.9 Irritable bowel syndrome, unspecified; Z95.0 Presence of cardiac pacemaker; G25.81 Restless legs syndrome; M19.90 Unspecified osteoarthritis, unspecified site; Z86.2 Personal history of diseases of the blood and blood-forming organs and certain disorders involving the immune mechanism; K75.9 Inflammatory liver disease, unspecified; M62.82 Rhabdomyolysis; Z90.49 Acquired absence of other specified parts of digestive tract; Z98.890 Other specified postprocedural states; Z79.899 Other long term (current) drug therapy
CPT/HCPCS: 70450; 70544; 70551; 71010; 74176; 76705; 80048; 80053; 80074; 80076; 80305; 80307; 81001; 82103; 82140; 82248; 82390; 82550; 82607; 82728; 82746; 83516; 83540; 83550; 83605; 83735; 84100; 84155; 84165; 84443; 85025; 85610; 85730; 86039; 86255; 87040; 93005; 93288; 93306; 93975; 95816; 96372; 96374; 96375; 96376; 99285; A9270-GY; G0378; J2405

== ENCOUNTER 2016-06-01 16:16 | Emergency (ER) | payer OTHER ==
[~2016-06-01 16:16] MED LIST changes: +PROTONIX PO; +X5 PO
[2016-06-01 17:01] LABS: BASOPHILS 0.2 %; BASOPHILS ABSOLUTE 0.02 10/3/uL (0.0-0.16); EOSINOPHILS 2.4 %; ER CBC TAT 0 Hrs 12 Mins; HEMATOCRIT 38.2 % (36.0-48.0); HEMOGLOBIN 12.8 g/dL (12.0-16.0); IMMATURE GRANULOCYTES 0.2 %; IMMATURE GRANULOCYTES ABSOLUTE 0.02 10/3/uL (0.0-0.11); LYMPHOCYTES 17.4 %; LYMPHOCYTES ABSOLUTE 1.46 10/3/uL (0.67-4.30); MANUAL DIFF NO %; MEAN CORPUS HGB CONC 33.5 g/dL (32.0-36.0); MEAN CORPUSCULAR HEMOGLOB 31.4 pg (26.0-34.0); MEAN CORPUSCULAR VOLUME 93.6 fL (80-100); MEAN PLATELET VOLUME 10.3 fL (9.2-13.0); NEUTROPHILS 73.8 %; NEUTROPHILS ABSOLUTE 6.18 10/3/uL (2.02-8.40); PLATELET COUNT 248 10/3/uL (150-400); RBC DISTRIBUTION WIDTH 12.7 % (12.0-16.0); RED CELL COUNT 4.08 10/6/uL (4.0-5.6); WHITE BLOOD CELLS 8.4 10/3/uL (4.5-10.5)
[2016-06-01 17:17] LABS: ALBUMIN 3.8 G/DL (3.5-5.0); ALKALINE PHOSPHATASE 151 U/L (45-117); BUN (BLOOD UREA NITROGEN) 8 MG/DL (6-23); CALCIUM, SERUM 8.9 MG/DL (8.5-10.4); CHLORIDE, SERUM 100 MMOL/L (96-112); CO2 (CARBON DIOXIDE) 26 MMOL/L (24-34); CREATININE 0.61 MG/DL (0.55-1.02); GFR AFRICAN AMERICAN 131 ML/MIN (>=60); GFR NON AFRICAN AMERICAN 113 ML/MIN (>=60); GLOBULIN 3.7 G/DL (2.5-4.1); GLUCOSE, SERUM 108 MG/DL (60-99); POTASSIUM, SERUM 3.6 MMOL/L (3.5-5.3); SGOT(AST) 23 U/L (5-40); SGPT(ALT) 34 U/L (5-65); SODIUM, SERUM 137 MMOL/L (135-148); TOTAL BILIRUBIN 1.2 MG/DL (0-1.2); TOTAL PROTEIN 7.5 G/DL (6.0-8.5); TROPONIN I <0.02 NG/ML (<0.05)
[2016-06-01 19:48] LABS: ASCORBIC ACID (UR NOT ORDER) NEG (NEG); BILIRUBIN, URINE NEGATIVE (NEG); ER URINALYSIS TAT 0 Hrs 11 Mins; KETONE, URINE NEGATIVE (NEG); LEUKOCYTE ESTERASE(NOT OR NEG (NEG); NITRITE (URINE) NEG (NEG); WBC (NOT ORDERED) (RFLEX) 2 (0-5)
[2016-06-01 20:38] LABS: C-REACTIVE PROTEIN 9.8 MG/L (<8.0)
[2016-07-22] MEDS ORDERED: MIRAPEX1.5 MG PO (12:58)
[2016-07-22] MEDS ORDERED: LOFIB160 PO (13:00)
[2016-07-22] MEDS ORDERED: CYANO1000T PO (13:02)
== END 2016-06-01 21:51 | disposition home or self-care (01) ==
LOC: ER 16:16
PROVIDERS: Emergency Medicine; Nurse Practitioner Acute Care
DX: T42.6X1A Poisoning by other antiepileptic and sedative-hypnotic drugs, accidental (unintentional), initial encounter (principal); K21.9 Gastro-esophageal reflux disease without esophagitis; K58.9 Irritable bowel syndrome, unspecified; D64.9 Anemia, unspecified; Z79.82 Long term (current) use of aspirin; Z79.899 Other long term (current) drug therapy
CPT/HCPCS: 71020; 80053; 81001; 82550; 82962; 84484; 85025; 85652; 86140; 87040; 93005; 99285